=== PATIENT | female | born 1975 | race Caucasian/White ===

== ENCOUNTER 2022-04-09 19:27 | Emergency (ER) | payer OTHER ==
[2022-04-09 20:10] VITALS: BP 131/75; PULSE 77; RESP 20; TEMP 97.9; BMI 26.6
[2022-04-09] MEDS ORDERED: KETOROLAC TROMETHAMINE 30 MG/1 ML VIAL IM ONE (20:42)
[2022-04-09] MEDS ORDERED: KETOROLAC TROMETHAMINE 30 MG/1 ML VIAL ONE (20:43)
== END 2022-04-09 21:01 | disposition home or self-care (01) ==
LOC: JERFT 19:27
PROC: 3E0233Z Introduction of Anti-inflammatory into Muscle, Percutaneous Approach (ICD-10-PCS; principal; 2022-04-09)
DX: S39.012A Strain of muscle, fascia and tendon of lower back, initial encounter (principal); V49.40XA Driver injured in collision with unspecified motor vehicles in traffic accident, initial encounter
CPT/HCPCS: 99284-25

== ENCOUNTER 2022-11-25 07:44 | Emergency (ER) | payer BC, OTHER ==
[2022-11-25] MEDS ORDERED: FAMOTIDINE 20 MG/50 ML IVPB 20 MG in PREMIX 50 IVPB ONE (07:47)
[2022-11-25] MEDS ORDERED: ALBUTEROL SO4 2.5/IPRATROPIUM 0.5 INH SOL 3 ML VIAL.NEB. NEB ONE ×2 (07:47→07:57)
[2022-11-25] MEDS ORDERED: DEXAMETHASONE SOD PHOSPHATE 4 MG/1 ML VIAL IVPUSH ONE (07:48)
[2022-11-25] MEDS ORDERED: DEXAMETHASONE SOD PHOSPHATE/PF 10 MG/ML SDV ONE (07:57)
[2022-11-25] MEDS ORDERED: FAMOTIDINE 20 MG/50 ML IVPB 20 MG/50 ML MG IVPB ONE (07:57)
[2022-11-25 08:19] VITALS: RESP 18; TEMP 98.4; BMI 27.3
[2022-11-25] MEDS ORDERED: SODIUM CHLORIDE 0.9% 500 ML INFUS.BAG IV ONE (08:28)
[2022-11-25 09:08] VITALS: BP 114/67; PULSE 55
== END 2022-11-25 13:53 | disposition home or self-care (01) ==
LOC: FER 07:44
PROC: 3E033GC Introduction of Other Therapeutic Substance into Peripheral Vein, Percutaneous Approach (ICD-10-PCS; principal; 2022-11-25)
PROC: 3E033GC Introduction of Other Therapeutic Substance into Peripheral Vein, Percutaneous Approach (ICD-10-PCS; 2022-11-25)
PROC: 3E033GC Introduction of Other Therapeutic Substance into Peripheral Vein, Percutaneous Approach (ICD-10-PCS; 2022-11-25)
PROC: 3E0F7GC Introduction of Other Therapeutic Substance into Respiratory Tract, Via Natural or Artificial Opening (ICD-10-PCS; 2022-11-25)
DX: J02.9 Acute pharyngitis, unspecified (principal); T78.08XA Anaphylactic reaction due to eggs, initial encounter
CPT/HCPCS: 99284-25

== ENCOUNTER 2023-03-14 22:54 | Emergency (ER) | payer BC ==
[2023-03-14 23:03] VITALS: BP 115/75; PULSE 85; RESP 18; TEMP 98.7; BMI 27.6
== END 2023-03-15 00:07 | disposition home or self-care (01) ==
LOC: FER 22:54
DX: S93.402A Sprain of unspecified ligament of left ankle, initial encounter (principal); M25.572 Pain in left ankle and joints of left foot; W18.49XA Other slipping, tripping and stumbling without falling, initial encounter; Y93.01 Activity, walking, marching and hiking; Y92.009 Unspecified place in unspecified non-institutional (private) residence as the place of occurrence of the external cause
CPT/HCPCS: 73610-TC-LT-FY; 99283-25

== ENCOUNTER 2023-08-13 06:03 | Day surgery (SDC) | payer BC ==
[2023-08-06 09:10] VITALS: BMI 28.1
[2023-08-13] MEDS ORDERED: PROPOFOL 20 ML ONE ×3 (07:05→10:29)
[2023-08-13] MEDS ORDERED: ceFAZolin SODIUM 1 GM VIAL ONE (07:05)
[2023-08-13] MEDS ORDERED: MIDAZOLAM HCL 2 MG/2 ML SINGLE DOSE VIAL ONE ×2 (07:05→09:23)
[2023-08-13] MEDS ORDERED: BUPIVACAINE HCL/PF 0.5% (5 MG/ML) 30 ML VIAL IJ ONE ×2 (07:08→07:09)
[2023-08-13] MEDS ORDERED: BUPIVACAINE LIPOSOME/PF (EXPAREL) 266 MG/20 ML VIAL ONE (07:08)
[2023-08-13] MEDS ORDERED: ACETAMINOPHEN INJECTION 100 ML IVPB ONE (07:09)
[2023-08-13] MEDS ORDERED: ACETAMINOPHEN 325 MG TABLET (FP) PO PRN (07:29)
[2023-08-13] MEDS ORDERED: ONDANSETRON 4 MG/2 ML VIAL IVPUSH PRN ×2 (07:29→13:30)
[2023-08-13] MEDS ORDERED: LACTATED RINGERS SOLUTION 1,000 ML IV SCH (07:30)
[2023-08-13] MEDS ORDERED: CEFAZOLIN 2 GM in DEXTROSE 5%-WATER - 100 ML IVPB ONE ×2 (08:30→09:30)
[2023-08-13] MEDS ORDERED: KETOROLAC TROMETHAMINE 30 MG/1 ML VIAL ONE (08:42)
[2023-08-13] MEDS ORDERED: DEXAMETHASONE SOD PHOSPHATE 4 MG/1 ML VIAL ONE (08:42)
[2023-08-13] MEDS ORDERED: TRANEXAMIC ACID 1000 MG/10 ML VIAL IVPUSH ONE (09:30)
[2023-08-13] MEDS ORDERED: TRANEXAMIC ACID 1000 MG/10 ML VIAL ONE (10:14)
[2023-08-13] MEDS ORDERED: MAG HYDROX/AL HYDROX/SIMETH 30 ML UNIT-DOSE CUP PO PRN (11:45)
[2023-08-13] MEDS ORDERED: MAGNESIUM HYDROX 2400MG/30ML ORAL SUSPENSION 30 ML CUP PO PRN (11:45)
[2023-08-13] MEDS ORDERED: ONDANSETRON 4 MG/2 ML VIAL ONE (12:18)
[2023-08-13] MEDS: oxyCODONE HCL 5 MG TABLET PO PRN ×3 (15:08→21:00)
[2023-08-13] MEDS: CEFAZOLIN SODIUM 2 GM in DEXTROSE 5%-WATER 100 ML IVPB SCH (17:11)
[2023-08-13] MEDS: ACETAMINOPHEN 1000 MG/100 ML BAG IVPB SCH (17:11)
[2023-08-13] MEDS: diphenhydrAMINE HCL 25 MG CAPSULE (FP) PO PRN (18:48)
[2023-08-13] MEDS: SENNOSIDES/DOCUSATE COMBO (SENNA PLUS) TABLET (UD) PO SCH (21:28)
[2023-08-13] MEDS: DEXAMETHASONE 4 MG TABLET (FP) PO SCH (21:31)
[2023-08-13] MEDS ORDERED: TRANEXAMIC ACID 1000 MG/10 ML VIAL IVPB ONE ×2 (22:00)
[2023-08-13] MEDS ORDERED: DEXAMETHASONE 4 MG TABLET (FP) PO ONE (22:00)
[2023-08-13] MEDS ORDERED: GABAPENTIN 100 MG CAPSULE PO SCH ×2 (22:00)
[2023-08-13] MEDS ORDERED: FAMOTIDINE 20 MG TABLET PO SCH ×2 (22:00)
[2023-08-14] MEDS: oxyCODONE HCL 5 MG TABLET PO PRN ×5 (00:56→17:15)
[2023-08-14] MEDS: ACETAMINOPHEN 1000 MG/100 ML BAG IVPB SCH ×2 (00:57→10:26)
[2023-08-14] MEDS: CEFAZOLIN SODIUM 2 GM in DEXTROSE 5%-WATER 100 ML IVPB SCH (01:01)
[2023-08-14] MEDS: diphenhydrAMINE HCL 25 MG CAPSULE (FP) PO PRN (01:02)
[2023-08-14 02:38] VITALS: RESP 18
[2023-08-14] MEDS ORDERED: LEVOTHYROXINE NA 150 MCG TABLET PO SCH (07:00)
[2023-08-14] MEDS ORDERED: KETOROLAC TROMETHAMINE 30 MG/1 ML VIAL IVPUSH PRN (07:16)
[2023-08-14] MEDS: DEXAMETHASONE 4 MG TABLET (FP) PO SCH (09:04)
[2023-08-14] MEDS: SENNOSIDES/DOCUSATE COMBO (SENNA PLUS) TABLET (UD) PO SCH ×2 (09:04→09:08)
[2023-08-14] MEDS ORDERED: PANTOPRAZOLE 40 MG TABLET PO SCH (10:00)
[2023-08-14] MEDS ORDERED: MULTIVITAMINS (DAILY MVI) TABLET (FP) PO SCH (10:00)
[2023-08-14] MEDS ORDERED: ASPIRIN 81 MG CHEWABLE TABLETS PO SCH (10:00)
[2023-08-14] MEDS ORDERED: TRANEXAMIC ACID 1000 MG/10 ML VIAL IVPB ONE ×2 (10:00)
[2023-08-14 14:43] VITALS: TEMP 97.6
[2023-08-14 14:49] VITALS: BP 133/36; PULSE 72
== END 2023-08-14 17:57 | disposition home or self-care (01) ==
LOC: FASUSAT 06:03 → FM/S 13:04 → FASUSAT 08-14 17:57
PROVIDERS: ATTEND Orthopaedic Surgery
PROC: 8E0Y0CZ Robotic Assisted Procedure of Lower Extremity, Open Approach (ICD-10-PCS; 2023-08-13)
PROC: 0SRC0J9 Replacement of Right Knee Joint with Synthetic Substitute, Cemented, Open Approach (ICD-10-PCS; principal; 2023-08-13 09:38)
DX: M17.11 Unilateral primary osteoarthritis, right knee (principal)
CPT/HCPCS: 20985; 27447; C1776; S2900; 73560-TC-RT-FY; 81025; 94760; 97010-GP; 97116-GP; 97162-GP; C1889

== ENCOUNTER 2024-06-24 18:20 | Emergency (ER) | payer BC ==
[2024-06-24 18:55] VITALS: BP 117/78; PULSE 66; RESP 18; TEMP 98.3; BMI 25.0
[2024-06-24] MEDS ORDERED: KETOROLAC TROMETHAMINE 15 MG/ML VIAL ONE (19:03)
[2024-06-24] MEDS: KETOROLAC TROMETHAMINE 15 MG/ML VIAL IM ONE (19:09)
[2024-06-24] MEDS ORDERED: cefTRIAXone SODIUM 1 GM VIAL ONE (19:18)
[2024-06-24] MEDS: CEFTRIAXONE 1,000 MG in DEXTROSE 5%-WATER - 50 ML IVPB ONE (19:30)
[2024-06-24] MEDS ORDERED: ACETAMINOPHEN INJECTION 100 ML ONE (20:02)
[2024-06-24] MEDS: ACETAMINOPHEN 1000 MG/100 ML BAG IVPB ONE (20:04)
[2024-06-24 20:18] LABS: HEMOGLOBIN 12.5 G/dL (10.7-15.3); MCH 30.1 pg (25.7-33.7); MCHC 31.9 g/dl (32.0-36.0); MEAN CELL VOLUME 94.1 fl (80-96); MEAN PLT VOLUME 8.6 fl (7.5-11.1); PLATELET COUNT 377.7 10^3/uL (134-434); RBC 4.14 10^6/uL (3.60-5.2); RDW 14.3 % (11.6-15.6); WHITE BLOOD COUNT 6.4 10^3/uL (4.0-10.8)
[2024-06-24 20:31] LABS: ALBUMIN 4.6 g/dl (3.4-5.0); BILIRUBIN,TOTAL 0.5 mg/dl (0.2-1); CALCIUM 9.6 mg/dl (8.5-10.1); POTASSIUM 4.1 mmol/L (3.5-5.1); TOT PROT 6.4 g/dl (6.4-8.2)
[2024-06-24 20:34] LABS: PLATELET ESTIMATE ADEQUATE
[2024-06-24] MEDS: SODIUM CHLORIDE 0.9% 500 ML INFUS.BAG IV ONE (20:36)
[2024-06-24] MEDS: GABAPENTIN 100 MG CAPSULE PO ONE (20:48)
[2024-06-24] MEDS: CEPHALEXIN MONOHYDRATE 500 MG CAPSULE (UD) PO ONE (22:33)
== END 2024-06-24 22:10 | disposition home or self-care (01) ==
LOC: FER 18:20
PROC: 3E033GC Introduction of Other Therapeutic Substance into Peripheral Vein, Percutaneous Approach (ICD-10-PCS; principal; 2024-06-24)
PROC: 3E033NZ Introduction of Analgesics, Hypnotics, Sedatives into Peripheral Vein, Percutaneous Approach (ICD-10-PCS; 2024-06-24)
PROC: 3E0333Z Introduction of Anti-inflammatory into Peripheral Vein, Percutaneous Approach (ICD-10-PCS; 2024-06-24)
DX: N39.0 Urinary tract infection, site not specified (principal); R11.0 Nausea; R10.31 Right lower quadrant pain
CPT/HCPCS: 36415; 80053; 81003; 81015; 85027; 87086; 87186; 99284-25; J0131

== ENCOUNTER 2024-06-26 19:16 | Emergency (ER) | payer BC ==
[2024-06-26 19:33] VITALS: BP 110/69; PULSE 68; RESP 18; TEMP 98.2; BMI 25.0
[2024-06-26] MEDS ORDERED: KETOROLAC TROMETHAMINE 30 MG/1 ML VIAL ONE (19:46)
[2024-06-26] MEDS: KETOROLAC TROMETHAMINE 30 MG/1 ML VIAL IVPUSH ONE (19:56)
[2024-06-26 20:05] LABS: HEMATOCRIT 36.5 % (32.4-45.2); HEMOGLOBIN 11.5 G/dL (10.7-15.3); MCH 29.8 pg (25.7-33.7); MCHC 31.5 g/dl (32.0-36.0); MEAN CELL VOLUME 94.5 fl (80-96); MEAN PLT VOLUME 8.5 fl (7.5-11.1); PLATELET COUNT 325.3 10^3/uL (134-434); RBC 3.86 10^6/uL (3.60-5.2); RDW 14.3 % (11.6-15.6); WHITE BLOOD COUNT 6.5 10^3/uL (4.0-10.8)
[2024-06-26 20:29] LABS: ALBUMIN 4.3 g/dl (3.4-5.0); ALK PHOS 67 U/L (45-117); ANION GAP 6 mmol/L (4-13); BILIRUBIN,TOTAL 0.4 mg/dl (0.2-1); CALCIUM 9.3 mg/dl (8.5-10.1); CHLORIDE 108 mmol/L (98-107); CO2 26 mmol/L (21-32); CREATININE 0.9 mg/dl (0.6-1.3); GLUCOSE,RANDOM 86 mg/dl (74-106); POTASSIUM 3.8 mmol/L (3.5-5.1); SGOT/AST 19 U/L (15-37); SGPT/ALT 18 U/L (7-52); SODIUM 140 mmol/L (136-145); TOT PROT 6.2 g/dl (6.4-8.2)
[2024-06-26 20:39] LABS: PLATELET ESTIMATE SLT INCREASE
== END 2024-06-26 21:26 | disposition home or self-care (01) ==
LOC: FER 19:16
PROC: 3E0333Z Introduction of Anti-inflammatory into Peripheral Vein, Percutaneous Approach (ICD-10-PCS; principal; 2024-06-26)
DX: N39.0 Urinary tract infection, site not specified (principal); R10.13 Epigastric pain; R53.83 Other fatigue; Z20.822 Contact with and (suspected) exposure to COVID-19
CPT/HCPCS: 0241U-QW; 36415; 80053; 85027; 99284-25

== ENCOUNTER 2024-07-06 10:58 | Observation (INO) | payer BC ==
[2024-07-06] MEDS ORDERED: ACETAMINOPHEN INJECTION 100 ML ONE (12:17)
[2024-07-06] MEDS: ACETAMINOPHEN 1000 MG/100 ML BAG IVPB ONE (12:21)
[2024-07-06 12:44] LABS: HEMATOCRIT 41.8 % (32.4-45.2); HEMOGLOBIN 13.3 G/dL (10.7-15.3); INR 0.89 (0.83-1.09); MCH 29.8 pg (25.7-33.7); MCHC 31.7 g/dl (32.0-36.0); MEAN CELL VOLUME 93.9 fl (80-96); MEAN PLT VOLUME 8.7 fl (7.5-11.1); PLATELET COUNT 353.1 10^3/uL (134-434); PROTHROMBIN TIME (PATIENT) 10.2 SEC (9.7-13.0); RBC 4.45 10^6/uL (3.60-5.2); RDW 14.3 % (11.6-15.6); WHITE BLOOD COUNT 5.5 10^3/uL (4.0-10.8)
[2024-07-06 12:47] LABS: ACTIVATED PTT 31.2 SECONDS (25.2-36.5)
[2024-07-06 12:54] LABS: PLATELET ESTIMATE ADEQUATE
[2024-07-06 12:56] LABS: ALBUMIN 4.7 g/dl (3.4-5.0); BILIRUBIN,TOTAL 0.5 mg/dl (0.2-1); CALCIUM 10.1 mg/dl (8.5-10.1); CREATININE 0.9 mg/dl (0.6-1.3); POTASSIUM 4.3 mmol/L (3.5-5.1)
[2024-07-06] MEDS: MEROPENEM 1 GM in DEXTROSE 5%-WATER 100 ML IVPB ONE ×2 (16:36→23:50)
[2024-07-06 17:44] VITALS: BMI 28.1
[2024-07-06 17:48] LABS: ERYTHROCYTE SEDIMENTATION RATE 15 mm/hr (0-30)
[2024-07-06] MEDS ORDERED: methylPREDNISolone NA SUCC 125 MG/2 ML VIAL ONE (17:54)
[2024-07-06] MEDS ORDERED: FAMOTIDINE 20 MG/50 ML IVPB 20 MG/50 ML MG IVPB ONE (17:54)
[2024-07-06] MEDS: ACETAMINOPHEN 325 MG TABLET (FP) PO PRN (19:15)
[2024-07-06] MEDS: BACITRACIN ZINC 15 GM TUBE TOPICAL OINTMENT TP SCH (21:30)
[2024-07-06] MEDS: PANTOPRAZOLE 40 MG TABLET PO SCH (21:31)
[2024-07-06] MEDS: GABAPENTIN 100 MG CAPSULE PO SCH (21:31)
[2024-07-07] MEDS: LEVOTHYROXINE NA 125 MCG TABLET (FP) PO SCH (06:14)
[2024-07-07 07:51] LABS: HEMATOCRIT 39.2 % (32.4-45.2); HEMOGLOBIN 12.5 G/dL (10.7-15.3); MCH 30.3 pg (25.7-33.7); MEAN CELL VOLUME 94.6 fl (80-96); MEAN PLT VOLUME 8.5 fl (7.5-11.1); PLATELET COUNT 289.5 10^3/uL (134-434); RBC 4.14 10^6/uL (3.60-5.2); RDW 13.8 % (11.6-15.6); WHITE BLOOD COUNT 3.9 10^3/uL (4.0-10.8)
[2024-07-07 08:12] LABS: ALBUMIN 4.2 g/dl (3.4-5.0); BILIRUBIN,TOTAL 0.6 mg/dl (0.2-1); CALCIUM 9.8 mg/dl (8.5-10.1); CREATININE 0.8 mg/dl (0.6-1.3); MAGNESIUM 2.2 mg/dL (1.8-2.4); PHOSPHOROUS 4.2 (2.5-4.9); POTASSIUM 4.5 mmol/L (3.5-5.1); TOT PROT 6.2 g/dl (6.4-8.2)
[2024-07-07] MEDS: ERTAPENEM SODIUM 1 GM in SODIUM CHLORIDE 50 ML IVPB SCH (09:07)
[2024-07-07] MEDS: ESCITALOPRAM OXALATE 10 MG TABLET PO SCH (09:08)
[2024-07-07] MEDS: ENOXAPARIN NA (PORCINE) 40 MG/0.4 ML DISP.SYRIN SQ SCH (09:08)
[2024-07-07] MEDS: methylPREDNISolone NA SUCC 40 MG/1 ML VIAL IVPUSH ONE (09:59)
[2024-07-07] MEDS: LACTATED RINGERS SOLUTION 1,000 ML/1,000 ML INFUS.BAG IV SCH (13:37)
[2024-07-07] MEDS: POLYETHYLENE GLYCOL (HEALTHYLAX) 3350 17 GM PACKET PO SCH (18:54)
[2024-07-08] MEDS: TIGECYCLINE 100 MG in DEXTROSE 5%-WATER - 100 ML IVPB ONE (09:16)
[2024-07-08 09:43] LABS: CALCIUM 9.6 mg/dl (8.5-10.1); CREATININE 0.8 mg/dl (0.6-1.3); POTASSIUM 3.9 mmol/L (3.5-5.1)
[2024-07-08 10:07] LABS: BASO % 0.2 % (0-2.0); EOS % 0.7 % (0-4.5); HEMATOCRIT 36.6 % (32.4-45.2); LYMPH % 24.7 % (8-40); MCH 29.6 pg (25.7-33.7); MCHC 32.8 g/dl (32.0-36.0); MEAN CELL VOLUME 90.2 fl (80-96); MEAN PLT VOLUME 8.6 fl (7.5-11.1); MONO % 8.9 % (3.8-10.2); NEUT % 65.5 % (42.8-82.8); PLATELET COUNT 367 10^3/uL (134-434); RBC 4.06 M/mm3 (3.60-5.2); RDW 13.7 % (11.6-15.6); WHITE BLOOD COUNT 9.1 K/mm3 (4.0-10.0)
[2024-07-08] MEDS: LACTOBACILLUS ACIDOPHILUS 1 TABLET PO SCH (13:17)
[2024-07-08] MEDS: LIDOCAINE 5% TOPICAL PATCH TP SCH (17:52)
[2024-07-08] MEDS: LIDOCAINE PATCH REMOVAL MC SCH (21:05)
[2024-07-09 08:50] LABS: CALCIUM 9.5 mg/dl (8.5-10.1); CREATININE 0.8 mg/dl (0.6-1.3); POTASSIUM 4.3 mmol/L (3.5-5.1)
[2024-07-09] MEDS: TIGECYCLINE 50 MG in DEXTROSE 5%-WATER 100 ML IVPB SCH (09:10)
[2024-07-09 09:41] LABS: BASO % 0.5 % (0-2.0); EOS % 1.8 % (0-4.5); HEMATOCRIT 37.9 % (32.4-45.2); HEMOGLOBIN 12.5 GM/dL (10.7-15.3); LYMPH % 39.6 % (8-40); MCH 29.8 pg (25.7-33.7); MCHC 32.9 g/dl (32.0-36.0); MEAN CELL VOLUME 90.7 fl (80-96); MEAN PLT VOLUME 8.5 fl (7.5-11.1); MONO % 7.9 % (3.8-10.2); NEUT % 50.2 % (42.8-82.8); PLATELET COUNT 359 10^3/uL (134-434); RBC 4.18 M/mm3 (3.60-5.2); RDW 13.6 % (11.6-15.6); WHITE BLOOD COUNT 6.1 K/mm3 (4.0-10.0)
[2024-07-09] MEDS: METOCLOPRAMIDE HCL INJECTION 10 MG/2 ML VIAL IVPUSH ONE (14:48)
[2024-07-10 05:08] VITALS: RESP 18
[2024-07-10] MEDS: LACTATED RINGERS SOLUTION 1,000 ML/1,000 ML INFUS.BAG IV SCH (06:27)
[2024-07-10] MEDS: METOCLOPRAMIDE HCL INJECTION 10 MG/2 ML VIAL IVPUSH PRN (09:18)
[2024-07-10 12:25] VITALS: BP 116/83; PULSE 85; TEMP 97.9
== END 2024-07-10 12:27 | disposition home or self-care (01) ==
LOC: FER 10:58 → FM/S 15:52 → INTOOBSV 15:52
PROVIDERS: ADMIT Internal Medicine; ATTEND Internal Medicine
PROC: 3E033NZ Introduction of Analgesics, Hypnotics, Sedatives into Peripheral Vein, Percutaneous Approach (ICD-10-PCS; principal; 2024-07-06)
PROC: 3E03329 Introduction of Other Anti-infective into Peripheral Vein, Percutaneous Approach (ICD-10-PCS; 2024-07-06)
PROC: 3E033GC Introduction of Other Therapeutic Substance into Peripheral Vein, Percutaneous Approach (ICD-10-PCS; 2024-07-06)
PROC: 05HY33Z Insertion of Infusion Device into Upper Vein, Percutaneous Approach (ICD-10-PCS; 2024-07-06)
DX: K52.89 Other specified noninfective gastroenteritis and colitis (principal); N39.0 Urinary tract infection, site not specified; K90.0 Celiac disease; A49.8 Other bacterial infections of unspecified site; K52.9 Noninfective gastroenteritis and colitis, unspecified; N28.9 Disorder of kidney and ureter, unspecified; K21.9 Gastro-esophageal reflux disease without esophagitis; K83.9 Disease of biliary tract, unspecified; Z87.440 Personal history of urinary (tract) infections
CPT/HCPCS: 36415; 36569; 74177-TC; 80048; 80053; 81003; 81015; 83690; 83735; 84100; 84703; 85025; 85027; 85610; 85651; 85730; 86140; 86850; 86900; 86901; 87045; 87046; 87086; 99285-25; G0378; J0131; J3243; Q9967

== ENCOUNTER 2024-07-10 21:58 | Day surgery (SDC) | payer BC ==
[2024-07-10] MEDS: TIGECYCLINE 50 MG in DEXTROSE 5%-WATER 100 ML IVPB ONE (22:31)
[2024-07-10 22:41] VITALS: RESP 16; TEMP 97.6
[2024-07-10 23:38] VITALS: BP 116/54; PULSE 70
== END 2024-07-10 23:42 | disposition home or self-care (01) ==
LOC: FINFUSION 21:58 → FM/S 22:01 → FINFUSION 23:42
PROVIDERS: ATTEND Internal Medicine Infectious Disease
DX: N39.0 Urinary tract infection, site not specified (principal); B96.29 Other Escherichia coli [E. coli] as the cause of diseases classified elsewhere; Z16.12 Extended spectrum beta lactamase (ESBL) resistance
CPT/HCPCS: 96365; J3243

== ENCOUNTER 2024-07-11 10:47 | Day surgery (SDC) | payer BC ==
[2024-07-11] MEDS ORDERED: TIGECYCLINE 50 MG in DEXTROSE 5%-WATER - 100 ML IVPB ONE (11:15)
[2024-07-11] MEDS: TIGECYCLINE 50 MG in DEXTROSE 5%-WATER 100 ML IVPB ONE (11:36)
[2024-07-11 14:24] VITALS: BP 110/72; PULSE 90; RESP 16; TEMP 98.2
== END 2024-07-11 13:24 | disposition home or self-care (01) ==
LOC: FINFUSION 10:47 → FM/S 10:49 → FINFUSION 13:24
PROVIDERS: ATTEND Internal Medicine Infectious Disease
DX: N39.0 Urinary tract infection, site not specified (principal); B96.29 Other Escherichia coli [E. coli] as the cause of diseases classified elsewhere; Z16.12 Extended spectrum beta lactamase (ESBL) resistance
CPT/HCPCS: 96365; J3243

== ENCOUNTER 2024-07-11 21:52 | Day surgery (SDC) | payer BC ==
[2024-07-11 22:19] VITALS: RESP 16; TEMP 97.5
[2024-07-11] MEDS: TIGECYCLINE 50 MG in DEXTROSE 5%-WATER 100 ML IVPB ONE (22:20)
[2024-07-11 23:25] VITALS: BP 127/77; PULSE 69
== END 2024-07-11 23:25 | disposition home or self-care (01) ==
LOC: FINFUSION 21:52 → FM/S 21:53 → FINFUSION 23:25
PROVIDERS: ATTEND Internal Medicine Infectious Disease
DX: N39.0 Urinary tract infection, site not specified (principal); B96.29 Other Escherichia coli [E. coli] as the cause of diseases classified elsewhere; Z16.12 Extended spectrum beta lactamase (ESBL) resistance
CPT/HCPCS: 96365; J3243

== ENCOUNTER 2024-07-12 10:09 | Day surgery (SDC) | payer BC ==
[2024-07-12 10:32] VITALS: BP 116/79; PULSE 85; RESP 18; TEMP 97.3
[2024-07-12] MEDS: TIGECYCLINE 50 MG in DEXTROSE 5%-WATER 100 ML IVPB SCH (10:38)
== END 2024-07-12 12:23 | disposition home or self-care (01) ==
LOC: FINFUSION 10:09 → FM/S 10:12 → FINFUSION 12:23
PROVIDERS: ATTEND Internal Medicine Infectious Disease
DX: N39.0 Urinary tract infection, site not specified (principal); B96.29 Other Escherichia coli [E. coli] as the cause of diseases classified elsewhere; Z16.12 Extended spectrum beta lactamase (ESBL) resistance
CPT/HCPCS: 96365; J3243

== ENCOUNTER 2024-12-19 14:45 | Emergency (ER) | payer BC ==
[2024-12-19 14:56] VITALS: BP 117/77; PULSE 67; RESP 18; TEMP 98.2; BMI 23.8
[2024-12-19] MEDS ORDERED: ONDANSETRON *ODT* 4 MG TABLET ONE (14:57)
[2024-12-19] MEDS: ONDANSETRON *ODT* 4 MG TABLET SL ONE (14:58)
[2024-12-19 15:39] LABS: CALCIUM OXALATE CRYSTALS MODERATE /hpf (NONE SEEN); EPITHELIAL CELLS 0-5 /hpf; URINE MUCUS FEW
== END 2024-12-19 15:19 | disposition home or self-care (01) ==
LOC: FER 14:45
DX: R30.0 Dysuria (principal)
CPT/HCPCS: 81003; 81015; 87086; 99283-25; Q0162